=== PATIENT | male | born 1960 | race Caucasian/White ===

== ENCOUNTER → 2017-06-27 | Outpatient (REF) ==
[~2017-06-27] MED LIST: GADOBENATE 529MG/1ML 15ML VIAL IVP ONE; RIVA1TAB
--- NOTE | 2017-06-27 10:50 | RADIOLOGY IMAGING REPORT ---
FACILITY: [facility] [place] PATIENT NAME: Jama Rico : 1960 MR: [id number] V: [id number] EXAM DATE: ORDERING PHYSICIAN: EVARISTO HOLBROOK TECHNOLOGIST: Location: [facility] Patient: Jama Rico : 1960 Visit/Account:[id number] Date of Sevice: 06/27/2017 Exam type: ORBITS FOREIGN BODY 1 VIEW History: Pre-MRI screening Comparison: None. Findings: No radiopaque metallic foreign bodies project over the orbits IMPRESSION: 1. No radiopaque metallic foreign bodies project over the orbits Report Dictated By: Kacie Lyons MD at 06/27/2017 10:45 AM Report E-Signed By: Kacie Lyons MD at 06/27/2017 10:47 AM WSN:[email or web address]
--- NOTE | 2017-06-27 15:00 | RADIOLOGY IMAGING REPORT ---
FACILITY: [facility] PATIENT NAME: Jama Rico : 1960 MR: [id number] V: [id number] EXAM DATE: ORDERING PHYSICIAN: EVARISTO HOLBROOK TECHNOLOGIST: Location: [facility] Patient: Jama Rico : 1960 Visit/Account:[id number] Date of Sevice: 06/27/2017 FEMUR RIGHT W W/O CONTRAST INDICATION: Possible necrotizing fasciitis. History of gangrene in March 2017.. COMPARISON: None available TECHNIQUE: Multiplanar multisequence MR images were obtained through the right thigh before and after administration of 15 mL MultiHance contrast. FINDINGS: MRI right thigh: Hyperintense ovoid lesion proximal right femoral shaft measures 3.9 cm maximum dimension likely repre sents a benign chondroid lesion. There is minimal intramuscular edema of the medial margin of the medial proximal right thigh musculat ure with overlying mild subcutaneous edema within the medial thigh soft tissues may relate to mild ce llulitis and underlying mild reactive intramuscular edema. No significant intermuscular edema There is no rim-enhancing fluid collections to suggest abscess. There are few nonspecific likely reac tive small right groin lymph nodes also noted. Visualized proximal right hamstring tendons show mild tendinopathy with the distal right gluteus mini mus and medius tendons appearing unremarkable. IMPRESSION: 1. Mild cellulitis medial proximal right thigh with underlying likely reactive edema within the media l right thigh musculature as above. Report Dictated By: Ike Moseley MD at 06/27/2017 2:45 PM Report E-Signed By: Ike Moseley MD at 06/27/2017 2:55 PM WSN:[email or web address]
== END ==
LOC: MRI 06:49
PROVIDERS: ATTEND Nurse Practitioner
DX: L03.115 Cellulitis of right lower limb (principal)
CPT/HCPCS: 70030; 73720; A9577

== ENCOUNTER → 2017-07-20 | Outpatient (REF) ==
[~2017-07-20] MED LIST changes: -GADOBENATE 529MG/1ML 15ML VIAL IVP ONE
--- NOTE | 2017-07-20 09:33 | RADIOLOGY IMAGING REPORT ---
FACILITY: [facility] - [place] PATIENT NAME: Jama Rico : 1960 MR: [id number] V: [id number] EXAM DATE: ORDERING PHYSICIAN: BERE MARTIN TECHNOLOGIST: Location: [facility] [place] Patient: Jama Rico : 1960 Visit/Account:[id number] Date of Sevice: 07/20/2017 Exam type: ORBITS FOREIGN BODY 1 VIEW History: History of metal grinding, pre-MRI screening Comparison: None. Findings: No radiopaque metallic foreign bodies project over the orbits IMPRESSION: 1. No radiopaque metallic foreign bodies project over the orbits Report Dictated By: Kacie Lyons MD at 07/20/2017 9:24 AM Report E-Signed By: Kacie Lyons MD at 07/20/2017 9:27 AM WSN:[email or web address]
--- NOTE | 2017-07-20 11:33 | RADIOLOGY IMAGING REPORT ---
[place] [facility] [place] Jama [place] : 1960 MR: [id number] V: [id number] EXAM DATE: ORDERING PHYSICIAN: BERE MARTIN TECHNOLOGIST: Location: [facility] Patient: Jama Rico : 1960 Visit/Account:[id number] Date of Sevice: 07/20/2017 EXAMINATION: MRI Lumbar spine without intravenous contrast HISTORY: Low back pain radiating into the legs. COMPARISON: Lumbar spine radiographs from same date. TECHNIQUE: Multi-planar, multi-sequence lumbar spine MRI was performed without intravenous contrast administration. FINDINGS: Alignment: Minimal anterior listhesis of L3 over L4 and L4 over L5. Mild convex leftward curvature i n the lower lumbar spine. Vertebral marrow signal: Negative. Distal thoracic cord: Negative. Conus: negative, terminates at L1 Cauda equina: Negative. Paravertebral soft tissues: Negative. Visualized abdominal and pelvic structures: Negative. Disc Spaces: Lower thoracic spine: T11-T12: Mild circumferential disc bulge with superimposed small left central disc protrusion. Mild facet hypertrophy. No significant spinal canal stenosis. Mild left and moderate right neural forami nal stenosis. T12-L1: Mild facet hypertrophy with no significant stenosis. L1-2: Minimal disc bulge. Mild facet hypertrophy. No spinal canal stenosis. Mild bilateral neural foraminal stenosis. L2-3: Minimal disc bulge. Mild facet hypertrophy. No spinal canal stenosis. Mild bilateral neural foraminal stenosis. L3-4: Minimal anterior listhesis. Mild disc height loss and circumferential disc bulge. Moderate fa cet hypertrophy. Mild ligamentum flavum thickening. Moderate spinal canal and bilateral neural fora alonso stenosis. L4-5: Minimal anterior listhesis. Mild disc height loss and circumferential disc bulge. Moderate to severe facet hypertrophy and ligamentum flavum thickening. Moderately severe spinal canal stenosis. Moderate bilateral neural foraminal stenosis. L5-S1: Mild disc height loss and circumferential disc bulge. Mild facet hypertrophy. No significant spinal canal stenosis. Moderate bilateral neural foraminal stenosis. IMPRESSION: 1. Multilevel degenerative disc disease and facet hypertrophy with minimal anterior listhesis of L3 over L4 and L4 over L5. 2. Moderate spinal canal stenosis at L3-L4. Moderately severe spinal canal stenosis at L4-L5. 3. Multilevel mild to moderate neural foraminal stenosis. Report Dictated By: Dk Whitt MD at 07/20/2017 11:23 AM Report E-Signed By: Dk Whitt MD at 07/20/2017 11:29 AM WSN:[id number]
--- NOTE | 2017-07-20 14:37 | RADIOLOGY IMAGING REPORT ---
FACILITY: [facility] PATIENT NAME: Jama Rico : 1960 MR: [id number] V: [id number] EXAM DATE: ORDERING PHYSICIAN: BERE MARTIN TECHNOLOGIST: Location: [facility] Patient: Jama Rico : 1960 Visit/Account:[id number] Date of Sevice: 07/20/2017 Exam type: LUMBAR SPINE 2 OR 3 VIEW History: Low back pain Comparison: None. Findings: There are five nonrib-bearing lumbar-type vertebral bodies present. There is no evidence of acute fr actures or subluxations.. Mild to moderate degenerative facet joint changes are seen from L3 to S1. Mild disc space narrowing at L5-S1 is present. There are Mild vascular calcifications in the abdomi nal aorta IMPRESSION: 1. Spondylotic changes lumbar spine as described Report Dictated By: Kacie Lyons MD at 07/20/2017 2:29 PM Report E-Signed By: Kacie Lyons MD at 07/20/2017 2:32 PM WSN:[email or web address]
== END ==
LOC: MRI 07-19 07:16
PROVIDERS: ATTEND Orthopaedic Surgery Orthopaedic Surgery of the Spine
DX: M51.36 Other intervertebral disc degeneration, lumbar region (principal); M48.061 Spinal stenosis, lumbar region without neurogenic claudication
CPT/HCPCS: 70030; 72100; 72148

== ENCOUNTER 2017-08-07 16:05 | Emergency (ER) | payer SELFPAY ==
--- NOTE | 2017-08-07 16:35 | ER Report ---
History and Physical Time Seen By MD: 16:35 Allergies: Coded Allergies: No Known Drug Allergies (Unverified , 04/17/17) Home Meds Reported Medications Rivaroxaban (Xarelto) 1 Each Tab.ds.pk 04/17/17 Hx Smoking: Yes Smoking Status: Current: Every Day Smoker, Heavy Tobacco Smoker Exposure to Second Hand Smoke?: No Hx Substance Use Disorder: Yes Hx Alcohol Use: No LIBNA ABDALLA MD Aug 07, 2017 16:35
--- NOTE | 2017-08-07 16:52 | ER Report ---
History and Physical Time Seen By MD: 16:52 Hx. of Stated Complaint: patient states that he thinks that he is constipated; also states that he has blood in his stool HPI/ROS CHIEF COMPLAINT: Rectal bleeding HISTORY OF PRESENT ILLNESS: 57-year-old male patient presents to emergency room with complaint of rectal bleeding. Patient states he is no signs for the past week. He states he's had several bloody stools during that time. He states he's never had any black or tarry stools, he states that he is noticed blood and mucus when he wipes. He states that he had an accident on Monday. When he was cleaning himself up he does have there was blood and mucus in his stool. He denies any fevers or chills. He states he is able to eat and drink without any difficulties. He states he's never had a colonoscopy in the past. REVIEW OF SYSTEMS: Respiratory: No cough, no dyspnea. Cardiovascular: No chest pain, no palpitations. Gastrointestinal: As noted above Musculoskeletal: No back pain. Allergies: Coded Allergies: No Known Drug Allergies (Unverified , 04/17/17) Home Meds Active Scripts Omeprazole (OMEPRAZOLE) 40 Mg Capsule.dr, 40 MG PO QDAY, #30 CAP Prov:RONALD STRAUSS 08/07/17 Sucralfate (CARAFATE) 1 Gm Tablet, 1 GM PO QID, #60 TAB Take before meals and at bedtime. Crush the tablet and mix with water before taking. 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 Patient has surgical history of tumor of bladder removed, surgery for necrotizing fasciitis. Reviewed Nurses Notes: Yes Hx Smoking: Yes Smoking Status: Current: Every Day Smoker, Heavy Tobacco Smoker Exposure to Second Hand Smoke?: No Hx Substance Use Disorder: Yes Hx Alcohol Use: No Constitutional Vital Sign - Last 24 Hours 08/07/17 08/07/17 08/07/17 08/07/17 17:09 17:30 18:00 18:05 Pulse ??? B/P (MAP) 166/90 (115) 159/86 (110) 157/90 (112) 08/07/17 08/07/17 08/07/17 08/07/17 18:09 18:30 18:35 19:00 Pulse 104 100 B/P (MAP) 166/87 (113) 161/92 (115) Pulse Ox 95 97 Intake and Output 08/07/17 08/07/17 08/08/17 15:00 23:00 07:00 Intake Total 800 ml Balance 800 ml Physical Exam General Appearance: The patient is alert, has no immediate need for airway protection and no current signs of toxicity. ENT: Tympanic membranes are pearly-wilde, auditory canals are patent, mucous membranes are moist. Respiratory: Chest is non tender, lungs are clear to auscultation. Cardiac: regular rate and rhythm Gastrointestinal: Abdomen is soft and non tender, no masses, bowel sounds normal. Musculoskeletal: Neck: Neck is supple and non tender. Extremities have full range of motion and are non tender. Patient has swelling to bilateral lower extremities. 1+ pitting edema. Skin: No rashes or lesions. DIFFERENTIAL DIAGNOSIS: After history and physical exam differential diagnosis was considered for GI bleed, congestive heart failure, ulcerative colitis. Medical Decision Making Data Points Result Diagram: 08/07/17 1744 08/07/17 1744 Laboratory Hematology Test 08/07/17 17:16 08/07/17 17:44 Stool Occult Blood (IFOB) Positive (NEGATIVE) Red Blood Count 5.22 M/uL (4.00-5.60) Mean Corpuscular Volume 83.0 fL (80.0-96.0) Mean Corpuscular Hemoglobin 28.2 pg (26.0-33.0) Mean Corpuscular Hemoglobin Concent 34.0 g/dL (32.0-36.0) Red Cell Distribution Width 14.1 % (11.5-14.5) Mean Platelet Volume 8.6 fL (7.2-11.1) Neutrophils (%) (Auto) 61.2 % (39.4-72.5) Lymphocytes (%) (Auto) 26.0 % (17.6-49.6) Monocytes (%) (Auto) 11.0 % (4.1-12.4) Eosinophils (%) (Auto) 1.1 % (0.4-6.7) Basophils (%) (Auto) 0.7 % (0.3-1.4) Nucleated RBC Relative Count (auto) 0.0 /100WBC Neutrophils # (Auto) 5.1 K/uL (2.0-7.4) Lymphocytes # (Auto) 2.2 K/uL (1.3-3.6) Monocytes # (Auto) 0.9 K/uL (0.3-1.0) Eosinophils # (Auto) 0.1 K/uL (0.0-0.5) Basophils # (Auto) 0.1 K/uL (0.0-0.1) Nucleated RBC Absolute Count (auto) 0.00 K/uL Sodium Level 143 mmol/L (137-145) Potassium Level 4.0 mmol/L (3.5-5.0) Chloride Level 106 mmol/L (98-107) Carbon Dioxide Level 24 mmol/L (22-30) Blood Urea Nitrogen 18 mg/dl (9-21) Creatinine 1.00 mg/dl (0.66-1.25) Glomerular Filtration Rate Calc > 60.0 Random Glucose 168 mg/dl (75-110) Calcium Level 9.1 mg/dl (8.4-10.2) Total Bilirubin 0.2 mg/dl (0.2-1.3) Aspartate Amino Transf (AST/SGOT) 20 U/L (0-35) Alanine Aminotransferase (ALT/SGPT) 30 U/L (0-56) Alkaline Phosphatase 99 U/L (0-126) Total Protein 7.0 gm/dl (6.3-8.2) Albumin 3.7 g/dl (3.5-5.0) Chemistry Test 08/07/17 17:16 08/07/17 17:44 Stool Occult Blood (IFOB) Positive (NEGATIVE) White Blood Count 8.3 k/uL (4.5-11.0) Red Blood Count 5.22 M/uL (4.00-5.60) Hemoglobin 14.7 g/dL (14.0-18.0) Hematocrit 43.4 % (42.0-52.0) Mean Corpuscular Volume 83.0 fL (80.0-96.0) Mean Corpuscular Hemoglobin 28.2 pg (26.0-33.0) Mean Corpuscular Hemoglobin Concent 34.0 g/dL (32.0-36.0) Red Cell Distribution Width 14.1 % (11.5-14.5) Platelet Count 193 K/uL (150-450) Mean Platelet Volume 8.6 fL (7.2-11.1) Neutrophils (%) (Auto) 61.2 % (39.4-72.5) Lymphocytes (%) (Auto) 26.0 % (17.6-49.6) Monocytes (%) (Auto) 11.0 % (4.1-12.4) Eosinophils (%) (Auto) 1.1 % (0.4-6.7) Basophils (%) (Auto) 0.7 % (0.3-1.4) Nucleated RBC Relative Count (auto) 0.0 /100WBC Neutrophils # (Auto) 5.1 K/uL (2.0-7.4) Lymphocytes # (Auto) 2.2 K/uL (1.3-3.6) Monocytes # (Auto) 0.9 K/uL (0.3-1.0) Eosinophils # (Auto) 0.1 K/uL (0.0-0.5) Basophils # (Auto) 0.1 K/uL (0.0-0.1) Nucleated RBC Absolute Count (auto) 0.00 K/uL Glomerular Filtration Rate Calc > 60.0 Calcium Level 9.1 mg/dl (8.4-10.2) Total Bilirubin 0.2 mg/dl (0.2-1.3) Aspartate Amino Transf (AST/SGOT) 20 U/L (0-35) Alanine Aminotransferase (ALT/SGPT) 30 U/L (0-56) Alkaline Phosphatase 99 U/L (0-126) Total Protein 7.0 gm/dl (6.3-8.2) Albumin 3.7 g/dl (3.5-5.0) EKG/Imaging Imaging KUB SINGLE VIEW ABDOMEN COMPARISONS: None. ADDITIONAL PERTINENT HISTORY: Constipation FINDINGS: Lung bases: Negative. Supine evidence of free air: None. Bowel gas pattern: Increased stool noted along the colon. No evidence of underlying bowel obstruction. Surrounding soft tissues and solid organs: Negative. Osseous structures: Negative. IMPRESSION: 1. Increased stool noted along the colon compatible with underlying moderate degree of constipation. 2. No evidence of underlying bowel obstruction. Report Dictated By: Rick Phillips MD at 08/07/2017 5:34 PM Report E-Signed By: Rick Phillips MD at 08/07/2017 5:35 PM ED Course/Re-evaluation ED Course Patient was admitted on exam room, history and physical were obtained. Differential diagnoses were considered. On examination patient had 1+ pitting edema to bilateral lower extremities, obvious tenderness to the abdomen. A stool sample was obtained which was described as a nurse as bloody with mucus. Patient was positive for occult stool. H&H was 14 and 43.4. I discussed the case with Dr. Allen, general surgeon. With the stable H&H and positive occult stool patient should have a colonoscopy. Dr. Allen felt that mucus could be related to inflammatory process in the bowel. I discussed this with the patient. We will go ahead and discharge patient home. He is to follow-up with Dr. Allen in the next couple days. He is to call tomorrow to make the appointment. He is return to emergency room if condition worsens. Patient verbalized understanding and agreement with plan. We will go ahead and start him on omeprazole and Carafate. Decision to Disposition Date: Aug 07, 2017 Decision to Disposition Time: 18:44 Depart Departure Latest Vital Signs Vital Signs Date Time Temp Pulse Resp B/P (MAP) Pulse Ox O2 Delivery O2 Flow Rate FiO2 08/07/17 19:00 161/92 (115) 08/07/17 18:35 100 97 Impression: Primary Impression: GI bleed Condition: Improved Disposition: HOME OR SELF-CARE New Scripts Omeprazole (OMEPRAZOLE) 40 Mg Capsule. 40 MG PO QDAY, #30 CAP Prov: RONALD STRAUSS CRAB BACKER 08/07/17 Sucralfate (CARAFATE) 1 Gm Tablet 1 GM PO QID, #60 TAB Take before meals and at bedtime. Crush the tablet and mix with water before taking. Prov: RONALD STRAUSS 08/07/17 Patient Instructions: Gastrointestinal Bleeding (ED) Additional Instructions: Increase fluid intake. Get plenty of rest. Follow up with Dr. Allen, call tomorrow for an appointment. Get plenty of rest. Take medications as prescribed. Stop taking the Xarelto. Problem Qualifiers Primary Impression: GI bleed GI bleed type/associated pathology: unspecified gastrointestinal hemorrhage type Qualified Codes: K92.2 - Gastrointestinal hemorrhage, unspecified RONALD STRAUSS Aug 07, 2017 16:52
[2017-08-07] MEDS ORDERED: RIVA20TA PO (17:11)
[2017-08-07] MEDS ORDERED: LANI SUBQ (17:11)
[2017-08-07] MEDS ORDERED: CHOL10005 PO (17:12)
[2017-08-07] MEDS ORDERED: INSU100V24 SQ (17:12)
[2017-08-07] MEDS ORDERED: GABA-549 PO (17:12)
[2017-08-07] MEDS ORDERED: NS(*) 0.9% 1000 ML BAG 1,000 ML IV ONE (17:15)
--- NOTE | 2017-08-07 17:39 | RADIOLOGY IMAGING REPORT ---
FACILITY: [facility] - [place] PATIENT NAME: Jama Rico : 1960 MR: [id number] V: [id number] EXAM DATE: ORDERING PHYSICIAN: RONALD STRAUSS TECHNOLOGIST: Location: [facility] - [place] Patient: Jama Rico : 1960 Visit/Account:[id number] Date of Sevice: 08/07/2017 KUB SINGLE VIEW ABDOMEN COMPARISONS: None. ADDITIONAL PERTINENT HISTORY: Constipation FINDINGS: Lung bases: Negative. Supine evidence of free air: None. Bowel gas pattern: Increased stool noted along the colon. No evidence of underlying bowel obstruction . Surrounding soft tissues and solid organs: Negative. Osseous structures: Negative. IMPRESSION: 1. Increased stool noted along the colon compatible with underlying moderate degree of constipation. 2. No evidence of underlying bowel obstruction. Report Dictated By: Rick Phillips MD at 08/07/2017 5:34 PM Report E-Signed By: Rick Phillips MD at 08/07/2017 5:35 PM WSN:[id number]
[2017-08-07 18:03] LABS: PLATELET COUNT, AUTOMATED 193 K/uL (150-450)
[2017-08-07] MEDS ORDERED: SUCR1TAB85 PO (18:46)
[2017-08-07] MEDS ORDERED: OMEP40CA48 PO (18:46)
[2017-08-07 19:00] VITALS: BP 161/92
== END 2017-08-07 19:03 | disposition home or self-care (01) ==
LOC: ER 16:24
DX: K92.2 Gastrointestinal hemorrhage, unspecified (principal)
CPT/HCPCS: 74018; 82274; 85025; 96360; 99284; J7030; 82040; 82247; 82310; 82374; 82435; 82565; 82947; 84075; 84132; 84155; 84295; 84450; 84460; 84520

== ENCOUNTER 2017-08-23 01:37 | Day surgery (SDC) | payer SELFPAY ==
[~2017-08-23] VITALS: Ht 180.3 cm; Wt 102.5 kg
[2017-08-23] VITALS (7 sets, daily range): BP systolic 126–153; BP diastolic 85–111
[~2017-08-23 01:37] MED LIST changes: +CHOL10005 PO; +GABA-549 PO; +GOLYTE PO; +INSU100V24 SQ; +LANI SUBQ; +OMEP40CA48 PO; +RIVA20TA PO; +SUCR1TAB85 PO
[2017-08-23] MEDS ORDERED: LIDOCAINE MPF 1% 5 ML VIAL ONE (06:55)
[2017-08-23] MEDS ORDERED: PROPOFOL EMUL(*) 10MG/ML 20 ML 60 ML ONE (06:55)
[2017-08-23] MEDS ORDERED: LIDOCAINE/SOD BICARB 8.4% SYR ID ONE (07:05)
[2017-08-23] MEDS ORDERED: NORMOSOL R SOLN(*) 1000 ML BAG 1,000 ML IV PRN (07:05)
--- NOTE | 2017-08-23 09:01 | Short(Outpt) Discharge Summary ---
Discharge Summary Reason for Hosp/Final Diag: (1) Mucous in stools Status: Chronic Hospital Course & Plan: Colonoscopy with biopsies completed without problems. (2) GI bleed Status: Acute Departure Discharge to: Home, Self Care Discharge Instructions Home Meds Active Scripts Peg/Electrolytes (GOLYTELY SOLUTION) 4,000 Ml Soln, 1 GAL PO ONCE, #1 GAL 0 Refills Prov:RICHIE NERI MD 08/15/17 Omeprazole (OMEPRAZOLE) 40 Mg Capsule.dr, 40 MG PO QDAY, #30 CAP Prov:RONALD STRAUSS 08/07/17 Sucralfate (CARAFATE) 1 Gm Tablet, 1 GM PO QID, #60 TAB Take before meals and at bedtime. Crush the tablet and mix with water before taking. Prov:RONALD STRAUSS 08/07/17 Reported Medications Gabapentin (GABAPENTIN) 300 Mg Capsule, 300 MG PO TID Y for PAIN, CAPSULE 08/07/17 Cholecalciferol (Vitamin D3) (VITAMIN D3) 1,000 Unit Tablet, 1000 UNIT PO, TAB 08/07/17 Insulin Lispro (HUMALOG) 100 Unit/1 Ml Vial, 5 UNIT SQ QID, VIAL 08/07/17 Insulin Glargine (LANTUS) 100 Unit/Ml Soln, 20 UNIT SUBQ BID, ML 08/07/17 Rivaroxaban 20 Mg (XARELTO 20 MG) 20 Mg Tablet, 20 MG PO, TAB 08/07/17 Follow up Referrals: General Surgery - 09/18/17 @ Surgery, General with Richie Neri Md You have a follow up appointment scheduled with Dr. Neri on 09/18/17, at 11:30. Diet: Diabetic Activity: As Tolerated Special Instructions: Your colonoscopy was completed without problems and you prep was excellent (Good Job!!). I found very mild colitis in a short segment of your colon but otherwise I didn't find any polyps or cancers. I will see you back in my office on 09/18/17, and we'll see how you're doing and if we need to do anything about the colitis. I biopsied your colon in the areas of the colitis. Stay off the xarelto for now to prevent bleeding at the biopsy sites, you can restart the xarelto on 08/28/17. Problem Qualifiers (1) GI bleed: GI bleed type/associated pathology: anorectal hemorrhage Qualified Codes: K62.5 - Hemorrhage of anus and rectum RICHIE NERI MD Aug 23, 2017 09:01
== END 2017-08-23 09:55 | disposition home or self-care (01) ==
LOC: OR 01:37
PROVIDERS: ATTEND Surgery
DX: K52.9 Noninfective gastroenteritis and colitis, unspecified (principal); E11.9 Type 2 diabetes mellitus without complications
CPT/HCPCS: 00811; 36416; 45380; 82948; 88305; J2001; J2704

== ENCOUNTER → 2017-09-04 | Outpatient (REF) ==
--- NOTE | 2017-09-05 17:38 | RADIOLOGY IMAGING REPORT ---
[place] [facility] [place] NAME: Jama Rico : 1960 MR: [id number] V: [id number] EXAM DATE: ORDERING PHYSICIAN: DEBORAH KING TECHNOLOGIST: Location: [facility] - [place] Patient: Jama Rico : 1960 Visit/Account:[id number] Date of Sevice: 09/04/2017 Exam type: ANKLE BRACHIAL INDICES History: There are strandy swelling, decreased posterior tibial artery pulses Comparison: None. Findings: Segmental pressure in the right brachial artery is 171 mmHg. Segmental pressure in the right posterior tibial artery is 195 mmHg. Signal pressure in the right do rsalis pedis artery is 180 mmHg. Segmental pressure in the right great toe is 126 mmHg. The GILSON on the right is 1.14 and the TBI on t he right is 0.74. There is no significant dampening of the PVR waveform The segmental pressure in the left brachial artery is 165 mmHg. The segmental pressure in the left posterior tibial artery is 168 mmHg. The segmental pressure the left dorsalis pedis artery is 187 mmHg. Segmental pressure in the left great toe is 174 mmHg. The GILSON on the left is 1.09 and the TBI on the left is 1.02. There is no significant dampening of the PVR waveforms IMPRESSION: 1. GILSON on the right is 1.14 and TBI on the right is 0.74 GILSON on the left is 1.09 and TBI on the left is 1.02 Report Dictated By: Kacie Lyons MD at 09/05/2017 5:31 PM Report E-Signed By: Kacie Lyons MD at 09/05/2017 5:34 PM WSN:[email or web address]
== END ==
LOC: RAD 01:21
PROVIDERS: ATTEND Nurse Practitioner Family
DX: R60.0 Localized edema (principal); E11.9 Type 2 diabetes mellitus without complications; I10 Essential (primary) hypertension; Z86.718 Personal history of other venous thrombosis and embolism
CPT/HCPCS: 93922

== ENCOUNTER 2018-07-18 10:19 | Outpatient (RCR) | payer SELFPAY ==
[~2018-07-18] VITALS: Ht 182.9 cm; Wt 109.8 kg
--- NOTE | 2018-07-22 16:10 | Medical Nutrition Therapy ---
Nutrition/Food History Breakfast: sausage 2 eggo waffels, 20 oz milk, butter, SF syrup Lunch: skips Dinner: 1c starch, 4-5 oz meat, occ veg, 20oz milk Snacks: milk, cookes, candy Nutritional Education Nutrition Education Topic: Diabetic Nutrition Learning Readiness: Interested Teaching Methods: Discussion, Handout, Demonstration Response to Teaching: Verbalize understanding Teaching Recipient: Patient, Significant Other Nutrition Counseling: Reviewed glycemic response to food and action of insulin with CHO. Reviewed what foods are high in CHO. Discussed CHO servings verses plate method. Provided meal plan of 4-5serving CHO/meal or 2c milk + 1-1 1/2c CHO/meal. Encouraged pt to consume heart healthy fats and lean meats. Pt states he is gettin Free Style Ollie. Encouraged pt to utilize it to see what foods cause elevated BG. Recommend pt talk with Dr regarding correction doses of insulin when high. Pt may be a candidate for insulin pump in the future. Nutrition Monitoring & Eval RD Patient Assessment Time: [address] Assessment Type: RD Education Nutritional Comment: provided 60 minutes education on diabetes focusing on nutrition. Copies To Copies to: ISIDRA COHEN MD ; PIOTR MARSH Jul 22, 2018 16:10
== END 2018-08-22 ==
LOC: DIET 10:19 → EDSTATUS 10:19
PROVIDERS: ATTEND Family Medicine
DX: E11.9 Type 2 diabetes mellitus without complications (principal); Z79.4 Long term (current) use of insulin
CPT/HCPCS: G0108 ×3